=== PATIENT | female | born 1955 | race Caucasian/White ===

== ENCOUNTER 2020-08-30 13:04 | Outpatient (REF) | payer BC, SELFPAY ==
[2020-08-30 14:06] LABS: MANUAL DIFF FLAG NO
[2020-08-30 14:17] LABS: Basophils Percent Auto 0.1 % (0-2); Eosinophils Percent Auto 0.1 % (0-4); Hematocrit 45.7 % (37-47); Hemoglobin 14.8 g/dl (12.0-16.0); Imm Gran Abs Auto 0.08 X10*3/uL (0.00-0.03); Imm Gran Pct Auto 0.7 % (0.0-0.4); Lymphocytes Absolute Auto 1.5 X10*3/uL (1.2-4.9); Lymphocytes Percent Auto 13.2 % (20-40); Mean Corpuscular HGB Conc 32.4 g/dl (31.0-35.0); Mean Corpuscular Hemoglobin 32.4 pg (27.0-33.0); Mean Platelet Volume 10.7 fL (9.4-12.3); Monocytes Absolute Auto 0.7 X10*3/uL (0.1-1.2); Monocytes Percent Auto 5.7 % (2-11); Neutrophils Absolute Auto 9.1 X10*3/uL (2.0-8.3); Neutrophils Percent Auto 80.2 % (45-73); Platelet Count 358 X10*3/uL (160-400); Red Blood Count 4.57 X10*6/uL (4.20-5.50); Red Cell Distribution Width 13.2 % (11.0-16.0); White Blood Count 11.3 X10*3/uL (4.8-10.8)
[2020-08-30 14:28] LABS: Alanine Aminotransferase 19 U/L (0-31); Albumin Level 4.1 g/dL (3.5-5.0); Alkaline Phosphatase 132 U/L (39-117); Anion Gap 15 (12-20); Aspartate Amino Transferase 13 U/L (5-31); Bilirubin Total 0.5 mg/dL (0.0-1.0); Blood Urea Nitrogen 18 mg/dL (9-16); C Reactive Protein 0.04 mg/dL (< or = 0.50); Calcium 9.4 mg/dL (8.4-10.2); Carbon Dioxide 29 mmol/L (22-29); Chloride 101 mmol/L (96-108); Estimated Glomerular Filt Rate > 60; Glucose Random 96 mg/dL (60-115); Potassium 4.5 mmol/L (3.3-5.1); Sodium 140 mmol/L (135-145); Total Protein 6.9 g/dL (6.5-8.0)
[2020-08-30 14:35] LABS: Estimated Average Glucose 126 mg/dL
[2020-08-30 15:05] LABS: Erythrocyte Sedimentation Rate 2 MM/HR (0-20)
== END 2020-08-30 13:05 | disposition home or self-care (01) ==
LOC: HO.HMGCLDS 13:04
PROVIDERS: PCP Internal Medicine; Visit Provider Internal Medicine
DX: R53.83 Other fatigue (principal); E11.9 Type 2 diabetes mellitus without complications
CPT/HCPCS: 36415; 80053; 83036; 85025; 85652; 86140

== ENCOUNTER 2022-05-21 08:57 | Emergency (ER) | payer BC, SELFPAY ==
--- NOTE | ~2022-05-21 | XR_ITS ---
EXAMINATION: XR SHOULDER, RIGHT CLINICAL INFORMATION: Right shoulder pain status post fall. COMPARISON: None TECHNIQUE: Three views of the right shoulder. FINDINGS: Mild right acromioclavicular degenerative joint changes are seen. The right glenohumeral joint is unremarkable. There is no acute fracture or dislocation. The soft tissues are unremarkable. XR/XR shoulder RT min 2V IMPRESSION: Mild right acromioclavicular degenerative joint changes. No acute fracture.
--- NOTE | ~2022-05-21 | XR_ITS ---
EXAMINATION: XR HUMERUS, RIGHT CLINICAL INFORMATION: Right humerus pain status post fall. COMPARISON: None TECHNIQUE: AP and lateral views of the right humerus. FINDINGS: The bones and soft tissues are normal. No fracture. Imaged portions of the shoulder and elbow are unremarkable. XR/XR humerus RT IMPRESSION: Unremarkable right humerus.
[2022-05-21 09:10] VITALS: BP 154/93; PULSE 100; RESP 19; TEMP 36.6; O2SAT 97; BMI 31.4
--- OUTSIDE RECORDS SUMMARY | 2022-05-21 09:26 | XMS_ITS | Continuity of Care Document ---
:1955 Author Organization [facility] Address [address] [place] [address]- Care Team Providers Name Role Phone Not on Staff, PCP Primary Care Physician Unavailable [facility] - 04/26/[address] [address]- [facility] Encounter Diagnosis Chest pain (Final) - 04/22/19 Lactic acidosis (Final) - 04/22/19 Discharge Disposition: A-D/C Home Attending Physician: Winnie Ansari MD Admitting Physician: Winnie Ansari MD Referring Physician: Not on Staff, Referring MD Allergies, Adverse Reactions, Alerts Substance Reaction Severity Status NKA Active Immunizations Given and Recorded Vaccine Date Status Refusal Reason pneumococcal 13-valent vaccine 04/24/19 Given influenza virus vaccine, inactivated 04/24/19 Given Medications No Known Medications Results Radiology Reports Exam Date Time Procedure Performing Provider Status 04/23/19 12:07 AM Upper GI W/O KUB Najma Donovan; Modified Notes:(Upper GI W/O KUB) Reason For Exam: paraesopheal hernia with herniated stomach;Other:RESULT: Upper GI W/O KUB Upper GI W/O KUB Reason: paraesophageal hernia with herniated stomach; Clinical Question(s): Obstruction; gastric outlet obstruction COMPARISON: CT angiogram chest abdomen pelvis 04/22/2019 FLUOROSCOPY TIME: 0.6 minutes Dose Area Product (DAP): 5047.3 uGy*m2 TECHNIQUE: Water-soluble contrast upper GI examination was performed. FINDINGS: Traveling Repair Accountant view: No free air. Enteric tube in place with the tip curved cranially. Excreted contrast in the renal collecting systems bilaterally. Esophagus and stomach: Normal esophageal contour and mucosal appearance. Normal esophageal motility with prompt emptying into the stomach. A large paraesophageal hernia is visualized but no mesenteroaxial volvulus is identified. There may be a degree of organoaxial volvulus, but not definitively. There is mild hold up of contrast in the stomach though contrast is noted to pass into the duodenum and proximal loops of jejunum. No complete gastric outlet obstruction. IMPRESSION: 1. Large paraesophageal hernia without evidence gastric outlet obstruction as questioned. 2.No mesenteroaxial volvulus is identified. There may be a degree of organoaxial volvulus without obstruction. Findings discussed by Dr. Katz with Sandra Otto MD at 04/23/2019 12:14 AM. I have personally reviewed the images and I agree with this report. WSN: [id number] Dictated By: Mark Katz MD Dictated Date/Time: 04/23/19 0:17 am Reviewed By: Curtis Britton MD Signed By: Curtis Britton MD Signed Date/Time: 04/23/19 0:22 am Transcribed By: TRISTIN Transcribed Date/Time: 04/23/19 0:15 am Exam Date Time Procedure Performing Provider Status 04/22/19 9:55 PM Chest Portable [place] (Verified) Notes:(Chest Portable) Reason For Exam: Tube PlacementRESULT: Chest Portable Chest Portable AP upright at 2132 hours Reason: Tube Placement; Clinical Question(s): Other:; NGT placement COMPARISON: 04/22/2019 at 1420 hours FINDINGS: LINES AND TUBES: Enteric tube tip terminates near ESOPHAGEAL junction. LUNGS AND PLEURA: Mildly low lung volume. Prominent interstitial markings bilaterally with left basilar opacity, likely atelectasis as there is a large hiatal hernia present. No pleural effusion. No pneumothorax. HEART, MEDIASTINUM AND LUCA: Mild prominence of the cardiac silhouette, unchanged. Normal mediastinal and hilar contour. Large hiatal hernia. BONES AND SOFT TISSUES: No acute abnormality. IMPRESSION: 1. Enteric tube tip terminates near gastroesophageal junction. Recommend advancing 5-6 cm. 2. Central pulmonary congestion, new from prior exam. 3. Suspected left basilar atelectasis secondary to large hiatal hernia. WSN: [id number] Dictated By: Dwain Kelley DO Dictated Date/Time: 04/22/19 9:58 pm Reviewed By: Dwain Kelley DO Signed By: Dwain Kelley DO Signed Date/Time: 04/22/19 9:58 pm Transcribed By: TRISTIN Transcribed Date/Time: 04/22/19 9:57 pm Exam Date Time Procedure Performing Provider Status 04/22/19 2:39 PM Chest Portable García Nickoa; Auth (Verified) Notes:(Chest Portable) Reason For Exam: Chest Pain;Other:RESULT: Chest Portable Chest Portable Reason: Other:; Chest Pain; Clinical Question(s): CHF COMPARISON: None. FINDINGS: LINES AND TUBES: None. LUNGS AND PLEURA: Clear lungs. Normal pulmonary vascularity. No pleural effusion. No pneumothorax. HEART, MEDIASTINUM AND LUCA: Heart is normal in size. Normal mediastinal and hilar contour. BONES AND SOFT TISSUES: No acute abnormality. Gas seen projecting over the left heart, probably within a moderate to large hiatal hernia. IMPRESSION: 1. No acute abnormality. 2. Gas projecting over the left heart is probably within a moderate to large hiatal hernia. WSN: [id number] Dictated By: Lisandro Costa MD Dictated Date/Time: 04/22/19 2:48 pm Reviewed By: Lisandro Costa MD Signed By: Lisandro Costa MD Signed Date/Time: 04/22/19 2:48 pm Transcribed By: TRISTIN Transcribed Date/Time: 04/22/19 2:47 pm Vital Signs Most recent to oldest 1 2 3 [Reference Range]: Height 162 cm 162 cm 162 cm (04/26/19 7:58 AM) (04/26/19 4:12 AM) (04/25/19 11: 31 PM) Weight 90.1 kg 90.1 kg (04/25/19 3:17 PM) (04/23/19 1:19 AM) Oxygen Saturation [94-100 %] 97 % 97 % 97 % (04/26/19 7:58 AM) (04/26/19 4:12 AM) (04/25/19 11: 31 PM) Pulse Rate [55-90 bpm] 88 bpm 71 bpm 86 bpm (04/26/19 7:58 AM) (04/26/19 4:12 AM) (04/25/19 11: 31 PM) Body Mass Index [18.5-24.99] 34.33 34.33 *>HHI* *>HHI* (04/25/19 3:17 PM) (04/23/19 1:19 AM) Blood Pressure [90-138/55-84 129/78 mm Hg 126/67 mm Hg 127 /75 mm Hg mm Hg] (04/26/19 7:58 AM) (04/26/19 4:12 AM) (04/25/19 11: 31 PM) Respiratory Rate [16-30 16 br/min 18 br/min 18 br/mi n br/min] (04/26/19 7:58 AM) (04/26/19 4:12 AM) (04/25/19 11: 31 PM) Temperature [96.8-100.4 DegF] 97.6 DegF 98.1 DegF 98 .0 DegF (04/26/19 7:58 AM) (04/26/19 4:12 AM) (04/25/19 11: 31 PM) Liters per Minute 1 L/min 1 L/min 1 L/min (04/23/19 7:58 AM) (04/23/19 4:00 AM) (04/23/19 1:1 9 AM) Mode of Delivery (Oxygen) Room air Room air Room a ir (04/26/19 7:58 AM) (04/26/19 4:12 AM) (04/25/19 11: 31 PM) Blood pressure sites Arm, right Arm, right Arm, right (04/26/19 7:58 AM) (04/26/19 4:12 AM) (04/25/19 11: 31 PM) Temperature Route Oral Oral Oral (04/26/19 7:58 AM) (04/26/19 4:12 AM) (04/25/19 11: 31 PM) Dry Weight 90.1 kg (04/23/19 1:19 AM) Sensory deficits None (04/23/19 1:19 AM) Mobility assistance Independent (04/23/19 1: AM)
--- OUTSIDE RECORDS SUMMARY | 2022-05-21 09:26 | XMS_ITS | Continuity of Care Document ---
:1955 Author Organization [facility] Address [address] [place] [address]- Care Team Providers Name Role Phone Srinivasa GORDILLO, Alexandre Novak Primary Care Physician [facility]): [facility] - 06/17/[address] [place] [address]- [facility] Attending Physician: Rashid Lowe Admitting Physician: Rashid Loew Referring Physician: AdmtrRashid Allergies, Adverse Reactions, Alerts Substance Reaction Severity Status shellfish hives Active Immunizations Given and Recorded Vaccine Date Status Refusal Reason pneumococcal 13-valent vaccine 04/24/19 Given influenza virus vaccine, inactivated 04/24/19 Given Medications acetaminophen 325 mg oral tablet 325 mg, By Mouth, Every 4 hours, PRN, Refills 0, Maintenance, Pain , Mild, 05/23/19 8:17:00 EST Start Date: 05/23/19 Status: OrderedColace sodium 100 mg oral capsule 100 mg, 1, capsule, By Mouth, 2 times a day, PRN, with plenty of water, # 20 capsule, Refills 0, Tot. Refills 0, Maintenance, for constipation, 05/23/19 8:17:00 EST, Print Requisition Start Date: 05/23/19 Status: OrderedoxyCODONE 5 mg oral tablet 5 mg, 1, tablet, By Mouth, Every 6 hours, PRN, # 12 tablet, Refills 0, Tot. Refills 0, Maintenance, Pain , Moderate, 05/23/19 8:17:00 EST, Print Requisition, Partial fill upon patient request Start Date: 05/23/19 Status: Ordered Social History Social History Type Response Smoking Status Never (less than 100 in life time) entered on: 06/07/19 Sex
--- OUTSIDE RECORDS SUMMARY | 2022-05-21 09:26 | XMS_ITS ---
:1955 Author Support Name Relationship Address Phone Vani Au Unavailable [address] [facility] [phone] [place] [address] Edward, Mireya Unavailable [address] 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 ; [id number] Calcaneal spur o f left foot M77.32 ; Ca lcaneal spur of right fo ot M77.31 ; Pain of left h eel M79.672 and Pain of right heel M79.[address], [place] [address] Jun, [place] [address] [place] [address] IMMUNIZATIONS No Known Immunizations SOCIAL HISTORY Qualifiers Date Never Smoker REASON FOR REFERRAL FUNCTIONAL STATUS PLAN OF CARE Activity Details Pending Test X ray : Foot, left 3V Pending Test X ray : Foot, right 3V Future/Pending Procedure ,[id number] TENDON SHEAT H/LIGAMENT VITAL SIGNS Height 5 ft 4 in in 2022-02-24 Weight 180 lbs 2022-02-24 BMI 30.89 kg/m2 2022-02-24 MEDICATIONS Medication Instructions Dosage Frequency Start End Duration Statu s Date Date Amoxicillin 500 Orally every 8 1 capsule 8h 5 day(s ) Not-Takin MG hrs g PROCEDURES Procedure Date Ordered Result Body Site INJ BETAMETHSN ACTAT&SOD PHOSPH-3MG Feb 24, 2022 INJ TENDON SHEATH/LIGAMENT Feb 24, 2022 X-RAY EXAM OF LEFT FOOT 3V Feb 24, 2022 X-RAY EXAM OF RIGHT FOOT 3V Feb 24, 2022 RESULTS No Results REASON FOR VISIT Insurance Providers [facility] Member Patient Patient Patient Patient Patient Subscriber Subscriber Subscriber Group Insurance Plan Plan Plan Plan ID Relationship Address Phone Name Date of ID Name Date of No Type Insurance Insurance Insurance Coverage to Subscriber Address Phone Name Dates Medicare National [phone] Medicare self Vani [id number] Govt Sv[employer] [address] [place] [address] [employer] [phone] Blue[employer] self Vani [id number] Au 2 Medicare [place] Medicare Preferred [id number] Preferred MEDICAL (GENERAL) HISTORY Type Description Date Medical History Hiatal hernia Medical History Measles Medical History Mumps Medical History Chicken pox Surgical History No know Surgical history
--- OUTSIDE RECORDS SUMMARY | 2022-05-21 09:26 | XMS_ITS | Continuity of Care Document ---
:1955 Author Organization [facility] Address [address] [place] [address]- Care Team Providers Name Role Phone Srinivasa GORDILLO, Alexandre Novak Primary Care Physician [facility] - 05/24/[address] [address]- [facility] Discharge Disposition: A-D/C Home Attending Physician: Prieto Marinelli MD Admitting Physician: Prieto Marinelli MD Referring Physician: Prieto Marinelli MD Allergies, Adverse Reactions, Alerts Substance Reaction [...] patient request Start Date: 05/23/19 Status: Ordered Procedures Procedure Date Related Diagnosis Body Site Status Robotic repair of hiatal hernia with Completed Toupet fundoplication Vital Signs Most recent to oldest 1 2 3 [Reference Range]: Height 162.5 cm 162.5 cm 162.5 cm (05/22/19 4:57 PM) (05/22/19 4:55 PM) (05/22/19 6:3 7 AM) Weight 85.4 kg (05/22/19 4:55 PM) Oxygen Saturation [94-100 93 % 92 % 95 % %] *L* *L* (05/23/19 7:00 PM ) (05/24/19 7:00 AM) (05/24/19 3:00 AM) Pulse Rate [55-90 bpm] 91 bpm 91 bpm 92 bpm *H* *H* *H* (05/24/19 7:00 AM) (05/24/19 3:00 AM) (05/23/19 7:0 0 PM) Body Mass Index 32.34 [18.5-24.99] *>HHI* (05/22/19 4:55 PM) Blood Pressure 148/88 mm Hg 136/74 mm Hg 148/75 mm Hg [90-138/55-84 mm Hg] *H* (05/24/19 3:00 AM) *H* (05/24/19 7:00 AM) (05/23/19 7:00 PM) Respiratory Rate [16-30 18 br/min 18 br/min 17 br/mi n br/min] (05/24/19 7:00 AM) (05/24/19 3:00 AM) (05/24/19 2:2 1 AM) Temperature [96.8-100.4 97.8 DegF 97.8 DegF 98.5 Deg F DegF] (05/24/19 7:00 AM) (05/24/19 3:00 AM) (05/23/19 7:0 0 PM) Liters per Minute 4 L/min 4 L/min 4 L/min (05/22/19 3:00 PM) (05/22/19 1:45 PM) (05/22/19 1:0 0 PM) Mode of Delivery (Oxygen) Room air Room air Room a ir (05/24/19 7:00 AM) (05/24/19 3:00 AM) (05/23/19 7:0 0 PM) Blood pressure sites Arm, right Arm, right Arm, right (05/24/19 7:00 AM) (05/24/19 3:00 AM) (05/23/19 7:0 0 PM) Temperature Route Oral Oral Oral (05/24/19 7:00 AM) (05/24/19 3:00 AM) (05/23/19 7:0 0 PM) Dry Weight 85.4 kg 85.4 kg 84 kg (05/22/19 4:55 PM) (05/22/19 6:37 AM) (05/17/19 10: 41 AM) Dry Weight Obtained Via Standing scale Patient/family stated (05/22/19 6:37 AM) (05/17/19 10:41 AM) Sensory deficits None (05/22/19 4:55 PM) Mobility assistance Independent (05/22/19 4:55 PM)
--- OUTSIDE RECORDS SUMMARY | 2022-05-21 09:26 | XMS_ITS | Continuity of Care Document ---
:1955 Author Organization Address [address] [place] [address]- Care Team Providers Name Role Phone Not on Staff, PCP Primary Care Physician Unavailable [facility]): 05/[facility]/19 - 05/15/[address] [address] Attending Physician: Rashid Lowe Admitting Physician: Rashid Lowe Referring Physician: AdmtrRashid Allergies, Adverse Reactions, Alerts Substance Reaction Severity Status NKA Active Immunizations Given and Recorded Vaccine Date Status Refusal Reason pneumococcal 13-valent vaccine 04/24/19 Given influenza virus vaccine, inactivated 04/24/19 Given
--- NOTE | 2022-05-21 09:52 | ED.EXTPRO ---
HPI - Extremity Problem General Chief complaint: Extremity Injury, Upper <MARTHA Gallego - Last Filed: 05/21/22 10:53> Stated complaint: R arm inj 05/21/22 <MARTHA Gallego - Last Filed: 05/21/22 10:53> Time Seen by Provider: 05/21/22 09:15 <MARTHA Gallego - Last Filed: 05/21/22 10:53> Source: patient <MARTHA Gallego - Last Filed: 05/21/22 10:53> Mode of arrival: ambulatory <MARTHA Gallego - Last Filed: 05/21/22 10:53> History of Present Illness HPI Narrative: 66-year-old female with no significant past medical history presenting to the ED complaining of right upper arm/shoulder pain S/P being pulled over while walking her dog this morning. Admits fell on outstretched hand, denies head trauma or LOC. reports mild paresthesias initially, resolved at present. Denies neck/back pain, nausea/vomiting, weakness <MARTHA Gallego - Last Filed: 05/21/22 10:53> MD Complaint: extremity pain <MARTHA Gallego - Last Filed: 05/21/22 10:53> Onset (ago): minute(s) <MARTHA Gallego - Last Filed: 05/21/22 10:53> Related Data Home medications: Previous Rx's Medication Instructions Recorded acetaminophen 160 mg chewable 320 mg PO Q4-6H PRN fever or pain 05/21/22 tablet (Children's Tylenol) #20 tabs lidocaine 5 % topical patch 1 patch topical DAILY PRN pain #30 05/21/22 (Lidoderm) ea <MARTHA Gallego - Last Filed: 05/21/22 10:53> Allergies/Adverse reactions: Allergies Allergy/AdvReac Type Severity Reaction Status Date / Time codeine [CODEINE] Allergy Intermediate HEADACHES Unverified 12/21/19 14:49 cheese Allergy Unknown RUNNY NOSE Unverified 12/21/19 14:49 <MARTHA Gallego Last Filed: 05/21/22 10:53> Review of Systems Review of Systems: Constitutional: No Fever, No Chills ENT/Mouth: No Ear Pain, No Nasal Congestion, No Rhinorrhea, No Swallowing Difficulty Cardiovascular: No Chest Pain, No SOB Respiratory: No Cough, No Sputum Gastrointestinal: No Nausea, No Vomiting, No Diarrhea, No Constipation, No Abdominal pain Genitourinary: No Dysuria, No Urinary Frequency, No Hematuria, No Urinary Incontinence/retention Musculoskeletal: + joint pain, No Myalgias, No Joint Swelling Skin: No Skin Lesions, No rash Neuro: No Weakness, No Numbness, + Paresthesias, no head trauma, no LOC <MARTHA Gallego - Last Filed: 05/21/22 10:53> Yes all other systems are reviewed and are negative <MARTHA Gallego - Last Filed: 05/21/22 10:53> Constitutional: Constitutional: Reports as per HPI <MARTHA Gallego - Last Filed: 05/21/22 10:53> PMF Past Medical History Attestation statement: The following information was validated with the patient. <MARTHA Gallego - Last Filed: 05/21/22 10:53> Physical Exam Vital Signs: Vital Signs: Last Vital Signs Temp 98 F 05/21/22 09:10 Pulse 100 05/21/22 09:10 Resp 19 05/21/22 09:10 BP 154/93 H 05/21/22 09:10 Pulse Ox 97 05/21/22 09:10 O2 Del Method 05/21/22 09:10 BMI result Body Mass Index 31.4 <MARTHA Gallego - Last Filed: 05/21/22 10:53> Vital Signs: Last Vital Signs Temp 98 F 05/21/22 09:10 Pulse 100 05/21/22 09:10 Resp 05/21/22 09:10 BP 154/93 H 05/21/22 09:10 Pulse Ox 97 05/21/22 09:10 O2 Del Method 05/21/22 09:10 BMI result Body Mass Index 31.4 <Jorge Addison MD - Last Filed: 05/28/22 16:25> Const: General: cooperative, healthy appearing and no acute distress <MARTHA Gallego Last Filed: 05/21/22 10:53> Orientation/consciousness: patient oriented x3 <MARTHA Gallego - Last Filed: 05/21/22 10:53> Limitations: no limitations <Ban Ritchieestella [facility] Last Filed: 05/21/22 10:53> HEENT: Head: Yes normal to inspection and Yes atraumatic <Ban Ritchieestella [facility] Last Filed: 05/21/22 10:53> Ears: hearing grossly normal bilaterally <Ban Ritchieestella [facility] Last Filed: 05/21/22 10:53> General nose exam: Normal external nose present <Ban Ritchieestella [facility] Last Filed: 05/21/22 10:53> Face and sinus: Yes normal facial exam <Ban Ritchieestella [facility] Last Filed: 05/21/22 10:53> Eyes: General: appearance normal, both eyes and all related structures <Ban Ritchieestella [facility] Last Filed: 05/21/22 10:53> EOM: EOMs intact bilaterally <Ban Ritchieestella [facility] Last Filed: 05/21/22 10:53> Neck: Other: No midline cervical spinous tenderness <Ban Ritchieestella [facility] Last Filed: 05/21/22 10:53> Neck: Yes normal visual inspection and Yes no meningeal signs <Ban Ricthieestella [place] - Last Filed: 05/21/22 10:53> Chest: Chest palpation & inspection: normal inspection of the chest and no crepitus <Ban Ritchieestella [facility] Last Filed: 05/21/22 10:53> Resp: Effort & Inspection: normal respiratory effort and no respiratory distress <Ban Ritchieestella [facility] Last Filed: 05/21/22 10:53> Cardio: Rate: regular rate <Ban Ritchieestella [facility] Last Filed: 05/21/22 10:53> Peripheral pulses: radial pulses present and ulnar radial pulses present <Ban Long [place] - Last Filed: 05/21/22 10:53> GI: Inspection: Yes normal to inspection <Ban Long [facility] Last Filed: 05/21/22 10:53> Palpation (GI): Soft to palpation, nontender, no guarding and not rigid <Ban Long [place] - Last Filed: 05/21/22 10:53> : General: Yes no CVA tenderness <MARTHA Gallego - Last Filed: 05/21/22 10:53> Back/Spine/Pelvis: Other: No midline thoracic/lumbar spinous tenderness/step-off or deformity <MARTHA Gallego - Last Filed: 05/21/22 10:53> Back: no CVA tenderness <MARTHA Gallego - Last Filed: 05/21/22 10:53> Skin: Rashes: no rashes <MARTHA Gallego - Last Filed: 05/21/22 10:53> Wounds: no wounds <MARTHA Gallego - Last Filed: 05/21/22 10:53> Neuro: General: patient oriented x3, tone normal and no meningeal signs <MARTHA Gallego - Last Filed: 05/21/22 10:53> Gait exam (Neuro): Normal gait present <MARTHA Gallego - Last Filed: 05/21/22 10:53> Extrem: Other: Right shoulder without noted deformity/ecchymosis or erythema. + tenderness to palpation to humerus with decreased abduction and flexion secondary to pain. Elbow/forearm/hand/wrist nontender with ROM intact. NV intact <MARTHA Gallego - Last Filed: 05/21/22 10:53> General: Yes normal to inspection and Yes capillary refill normal <MARTHA Gallego - Last Filed: 05/21/22 10:53> Course Course Course Narrative: XR shoulder RT min 2V IMPRESSION: Mild right acromioclavicular degenerative joint changes. No acute fracture. ? XR humerus RT IMPRESSION: Unremarkable right humerus. Results discussed with patient including worrisome signs and symptoms and strict return precautions, and when to return to the emergency department. They verbalized understanding and feel safe for discharge at this time. <MARTHA Gallego Last Filed: 05/21/22 10:53> Medical Decision Making Medical Decision Making MDM Narrative: 66-year-old female with no significant past medical history presenting to the ED complaining of right upper arm/shoulder pain S/P being pulled over while walking her dog this morning. On exam vital signs stable, NAD, nontoxic appearing, physical exam as noted above. Concern for fracture vs MSK pain/strain vs rotator cuff injury. Lower suspicion for dislocation, no evidence of infection Plan: X-rays Please refer to course for remaining clinical decision making, interpretation of labs/imaging results, and discussions with consultants and/or family members. <MARTHA Gallego - Last Filed: 05/21/22 10:53> Differential Diagnosis Differential Diagnoses: The differential diagnosis associated with the presentation includes <MARTHA Gallego - Last Filed: 05/21/22 10:53> As above <MARTHA Gallego - Last Filed: 05/21/22 10:53> Radiology Impression Discussion of test interpretation with radiology: I have reviewed the radiologist's reading. <MARTHA Gallego - Last Filed: 05/21/22 10:53> Prescription Management I considered prescription management with: Pain Medication <MARTHA Gallego - Last Filed: 05/21/22 10:53> Attestation Attending Attestation: I reviewed SALES ACCOUNT LEADER/PA/Resident note, assessment and plan. I agree with the documentation, assessment and plan unless otherwise stated. <Jorge Addison MD - Last Filed: 05/28/22 16:25> Discharge Plan Discharge Clinical Impression: Right shoulder strain <MARTHA Gallego - Last Filed: 05/21/22 10:53> Patient Disposition: Home, Self-Care <MARTHA Gallego - Last Filed: 05/21/22 10:53> Instructions: Muscle Strain (ED) <MARTHA Gallego - Last Filed: 05/21/22 10:53> Additional Instructions: Your x-ray shows some AC joint arthritis, no fractures. You likely strained her muscle. You may have an underlying soft tissue injury, pain persists or worsens please have close follow-up with her doctor/orthopedics as needed Ice. Rest. Take Tylenol and Motrin as needed. Apply patches for pain <MARTHA Gallego - Last Filed: 05/21/22 10:53> Prescriptions: New acetaminophen [Children's Tylenol] 160 mg tablet,chewable 320 mg PO Q4-6H PRN (Reason: fever or pain) Qty: 20 0RF lidocaine [Lidoderm] 5 % adhesive patch,medicated 1 patch topical DAILY MDD remove after 12 hours PRN (Reason: pain) Qty: 30 0RF Rx Instructions: leave on most painful area for up to 12 hrs <MARTHA Gallego - Last Filed: 05/21/22 10:53> Referrals: [facility] [Provider Group] (As needed) Alexandre Bernabe MD [Primary Care Provider] - <MARTHA Gallego - Last Filed: 05/21/22 10:53> Discharge Date/Time: 05/21/22 11:09 <MARTHA Gallego - Last Filed: 05/21/22 10:53>
== END 2022-05-21 11:09 | disposition home or self-care (01) ==
PROVIDERS: Emergency Provider Emergency Medicine; PCP Internal Medicine
DX: S46.911A Strain of unspecified muscle, fascia and tendon at shoulder and upper arm level, right arm, initial encounter (principal); M79.601 Pain in right arm; X50.0XXA Overexertion from strenuous movement or load, initial encounter; Y93.K1 Activity, walking an animal; Y92.480 Sidewalk as the place of occurrence of the external cause; Y99.9 Unspecified external cause status; Z79.899 Other long term (current) drug therapy
CPT/HCPCS: 73030; 73060; 99281; 99283

== ENCOUNTER → 2022-06-09 08:18 | Outpatient (BNVA) | payer BC, SELFPAY | PROVIDERS: PCP Internal Medicine; Visit Provider Physician Assistant | DX: Z13.89 Encounter for screening for other disorder (principal) ==

== ENCOUNTER → 2022-07-07 12:56 | Outpatient (BNVA) | payer BC, SELFPAY | PROVIDERS: PCP Internal Medicine; Visit Provider Physician Assistant | DX: Z13.89 Encounter for screening for other disorder (principal) ==

== ENCOUNTER → 2022-08-18 08:59 | Outpatient (BNVA) | payer BC, SELFPAY | PROVIDERS: PCP Internal Medicine; Visit Provider Physician Assistant ==

== ENCOUNTER 2022-10-01 08:10 | Outpatient (REF) | payer MEDICARE, MEDICAID, SELFPAY ==
--- NOTE | 2022-10-01 08:12 | EMG_ITS ---
FINDINGS: Right median and ulnar motor and sensory studies were performed. Right radial sensory study was performed and paraspinal muscles were tested with a needle. IMPRESSION: Mild right ulnar sensory neuropathy. Otherwise, no significant abnormality was noted. MD CESIA Dasilva/WILFREDO / [id number]
== END 2022-10-01 08:11 | disposition home or self-care (01) ==
LOC: HO.NEURO 08:10
PROVIDERS: PCP Internal Medicine; Visit Provider Physician Assistant
DX: R20.0 Anesthesia of skin (principal); R20.2 Paresthesia of skin
CPT/HCPCS: 95886; 95909

== ENCOUNTER 2022-11-04 12:38 | Outpatient (AMB) | payer MEDICARE, MEDICAID, SELFPAY ==
--- NOTE | 2022-11-04 13:11 | MHC.OFFVIS ---
Intake Vital Signs 11/04/22 13:19 Height 5 ft 4 in Weight 183 lb BMI 31.4 Intake Visit Reasons: OV-nerve conduction study review Intake Note: Vani 67 yr old female presents today for her EMG review. States her numbness is mainly in between her index and middle finger. Allergies codeine [CODEINE] Allergy (Intermediate, Verified 11/04/22 13:22) HEADACHES cheese Allergy (Unknown, Verified 11/04/22 13:22) RUNNY NOSE HPI OV-nerve conduction study review HPI Details Vani is a 67 year old right hand dominant woman who presents for a NCS review of her right hand numbness. She complains primarily of numbness in the dorsal aspect of the 2nd web space extending proximally to the back of her hand. She says this began after a fall onto her hands ~6 months ago, back in May. She says this occurred while walking her dog, and she had a leash around her wrist. She denies any numbness in her thumb, ring, or small fingers. [facility] Social History Alcohol intake: never Patient Tobacco Use Status: Never used Tobacco Current occupational status: retired Current occupation: right hand dominant Review of Systems Const All systems reviewed & are unremarkable except as noted in HPI and below Physical Exam Vital Signs: BMI result Body Mass Index 31.4 Const General: cooperative, healthy appearing and no acute distress Orientation/consciousness: patient oriented x3 HEENT Head: Yes normocephalic and Yes atraumatic Eyes EOM: EOMs intact bilaterally Resp Effort & Inspection: normal respiratory effort and able to speak in complete sentences Cardio Jugular venous distension: no JVD Skin General skin exam: turgor normal Rashes: no rashes Neuro General: patient oriented x3 Extrem Other: Evaluation of Right Upper Extremity: The patient is alert, oriented, and in no acute distress Neuro: Median, Ulnar, Radial nerves motor and sensory intact and sensation is normal to the tips of all digits, except for a narrow band of ~1.5cm in diameter, extending from the radial styloid to the dorsal aspect of the 2nd MCP joint. No thenar or intrinsic wasting Good APB muscle belly firing and good finger cross Vascular: Cap refill brisk ROM: She can make a fist and extend all her digits Skin: No lacerations or abrasions. General: No Ecchymosis. No Erythema or evidence of infection. Nerve Conduction Study: IMPRESSION:? Mild right ulnar sensory neuropathy.? Otherwise, no significant abnormality was noted. Sofie Pemberton MD 10/01/2022 Psych Appearance: grossly normal Affect: normal affect Attitude: cooperative Assessment & Plan Assessment & Plan (1) Cubital tunnel syndrome on right: Code(s): G56.21 - Lesion of ulnar nerve, right upper limb (2) Numbness of right hand: Code(s): R20.0 - Anesthesia of skin Plan Assessment & Plan: 1. Right hand numbness In the dorsal aspect of the 2nd webspace Likely an injury to the branch of the right superficial radial nerve causing numbness extending from the radial styloid distally to the dorsal aspect of the 2nd webspace. Narrow, perhaps ~1.5cm in diameter. no numbness in the thumb From an injury in 05/2022 after walking her dog. her dog pulled on her wrist, and the leash was wrapped around her rest, causing her to fall I educated her about this condition No acute intervention warranted I explained it may take up to 9 months for her sensation to improve following her injury, and it may not fully return she can follow up prn 2. Right Cubital tunnel syndrome, mild Not symptomatic at this time If she develops any increased numbness in the ring and small fingers she can follow up Scribed for Marianne Fox MD by Brandon Whittaker, medical laboratory technician, on 11/04/22 at 2:10 PM, EST. Coding Level of Care Code New Pt Level 3 (55994) Diagnoses Cubital tunnel syndrome on right G56.21 Numbness of right hand R20.0
[2022-11-04 13:19] VITALS: BMI 31.4
== END 2022-11-04 14:12 | disposition home or self-care (01) ==
PROVIDERS: PCP Internal Medicine; Visit Provider Orthopaedic Surgery
DX: G56.21 Lesion of ulnar nerve, right upper limb (principal)
CPT/HCPCS: 99213

== ENCOUNTER → 2022-11-04 12:38 | Outpatient (BNVA) | payer MEDICARE, MEDICAID, SELFPAY | PROVIDERS: PCP Internal Medicine; Visit Provider Orthopaedic Surgery ==

== ENCOUNTER 2022-12-23 08:54 | Emergency (ER) | payer MEDICARE, MEDICAID, SELFPAY ==
[2022-12-23 09:25] VITALS: BP 154/71; PULSE 83; RESP 18; TEMP 36.6; O2SAT 98; BMI 31.4
--- NOTE | 2022-12-23 10:30 | ED.GENADULT ---
HPI - General Adult General Chief complaint: General Medical Stated complaint: l sided gland swelling into ear Time Seen by Provider: 12/23/22 10:11 Source: patient Mode of arrival: ambulatory Limitations: no limitations History of Present Illness HPI narrative: 67-year-old female presents to the ER for evaluation of a swollen and painful gland at the angle of her jaw on the left side that started last night. She states the pain and pressure that started to radiate upward towards the ear. She denies any neck pain or dental pain. No difficulty opening or closing her mouth. No fever or chills. No redness over the area. MD complaint: Left facial pain Onset (ago): day(s) (1) Location: face Radiation: proximal Severity: moderate Severity scale (1-10): 7 Quality: sharp Pain Consistency: intermittent Relieving factors: rest Exacerbating factors: movement Associated symptoms: denies other symptoms Treatments prior to arrival: none Related Data Home Medications Medication Instructions Recorded Confirmed ibuprofen 200 mg tablet 200 mg PO Q6H PRN 06/09/22 Allergies Allergy/AdvReac Type Severity Reaction Status Date / Time codeine [CODEINE] Allergy Intermediate HEADACHES Verified 12/23/22 09:25 cheese Allergy Unknown RUNNY NOSE Verified 12/23/22 09:25 Review of Systems Review of Systems: Yes all other systems are reviewed and are negative [facility] Social History Social History Alcohol intake: never Patient Tobacco Use Status: Never used Tobacco Advance Directives: No Advance Directives Information Provided: Yes Current occupational status: retired Current occupation: right hand dominant Physical Exam ED Vital Signs: Vital Signs - 24 hr 12/23/22 09:25 Temperature 98 F Pulse Rate 83 Respiratory Rate 18 Blood Pressure 154/71 H Pulse Oximetry 98 Oxygen Delivery Method Room Air BMI result Body Mass Index 31.4 Appearance: Alert. Oriented X3. No acute distress. HEENT: normocephalic, atraumatic. there is mild swelling of the left parotid gland w/ associated tenderness. no overlying erythema. normal TMs bilaterally. no mastoid tenderness. no dental tenderness of gingival swelling. no visible salivary stone CVS: Normal heart rate and rhythm. Pulses normal. Respiratory: No respiratory distress. Skin: Skin warm and dry. Normal skin color. Normal skin turgor. No rashes. Extremities: normal inspection Neuro: Oriented X 3. Grossly normal, nonfocal Medical Decision Making Medical Decision Making MDM Narrative: female presents to the ER for evaluation of left-sided facial swelling and pain that started last night. On exam and clinical presentation are consistent with acute left-sided parotiditis. no evidence of acute infection. No mastoid tenderness. No dental infection noted. No need for antibiotics at this time. We discussed diagnosis and treatment along with return precautions. She is stable for discharge home. All questions were answered. Differential Diagnosis Differential Diagnoses: The differential diagnosis associated with the presentation includes parotiditis, AOM, otitis external, lymphadenopathy, mastoiditis External Record Review External record reviewed: Outpatient record and Prior outpatient labs Prescription Management I considered prescription management with: Pain Medication Critical Care Time Critical Care Time Critical Care Time: No Discharge Plan Discharge Clinical Impression: Parotiditis Patient Disposition: Home, Self-Care Instructions: Sialoadenitis (ED) Additional Instructions: take ibuprofen/motrin/Aleve/Advil for pain and swelling suck on sour candies or lemon to help increase saliva production gently massage the area and use warm compresses If you develop new or worsening symptoms call 911 or come back to the ER for further evaluation. Prescriptions: No Action ibuprofen 200 mg tablet 200 mg PO Q6H PRN Interventions: ED Discharge Assessment Last Done: 12/23/22 10:41 Discharge Date/Time: 12/23/22 10:43
== END 2022-12-23 10:43 | disposition home or self-care (01) ==
PROVIDERS: Emergency Provider Emergency Medicine; PCP Internal Medicine
DX: K11.21 Acute sialoadenitis (principal)
CPT/HCPCS: 99282; 99283

== ENCOUNTER 2024-08-31 08:42 | Emergency (ER) | payer MEDICARE, MEDICAID, SELFPAY ==
--- NOTE | ~2024-08-31 | XR_ITS ---
EXAMINATION: XR KNEE 3 VIEWS RIGHT HISTORY: knee pain COMPARISON: There are no prior studies available for comparison. FINDINGS: Four views of the right knee are submitted. Osseous mineralization is normal. There is no fracture or dislocation. The joint spaces are preserved. The soft tissues are unremarkable. There is no joint effusion. XR/XR knee RT 3V IMPRESSION: Unremarkable examination of the right knee. Electronically signed by: Pritesh Hollis MD 08/31/2024 10:00 AM EDT
[2024-08-31 09:02] VITALS: BP 158/92; PULSE 70; RESP 16; TEMP 36.7; O2SAT 97; BMI 34.0
[2024-08-31 09:05] VITALS: BP 158/92; PULSE 70; RESP 16; TEMP 36.7; O2SAT 97
--- NOTE | 2024-08-31 09:08 | PC.NURSE ---
Pt comes to ED today from home for complaint of R knee pain/swelling. Pt reports striking knee on furniture back in July. R knee was fine until recently when she began to experience pain and swelling that worsens with walking. She sates she took both Adult and Pediatric Ibuprofen in which did help with her pain. Pt observed ambulating with a safe and steady gait. A&Ox3 VSS. Awaiting ED provider.
--- NOTE | 2024-08-31 09:45 | ED_ITS ---
HPI - Extremity Injury (Lower) General Chief Complaint: Extremity Injury, Lower Stated Complaint: r knee pain Time Seen by Provider: 08/31/24 08:57 History of Present Illness HPI Narrative: Patient is a 69-year-old female presents today with having right knee pain. Patient claims she hit her right knee with a bedpost about a month ago. Has been having increasing pain. The pain is improved with ibuprofen. Patient denies any other trauma. Denies any swelling to the calf. No travel history no history of blood clots. Not on blood thinners. No head injury. No nausea no vomiting. Patient is from home. Related Data Home Medications ?Medication ?Instructions ?Recorded ?Confirmed ibuprofen 200 mg tablet 200 mg PO Q6H PRN 06/09/22 Allergies Allergy/AdvReac Type Severity Reaction Status Date / Time codeine [CODEINE] Allergy Intermediate HEADACHES Verified 08/31/24 09:04 cheese Allergy Unknown RUNNY NOSE Verified 08/31/24 09:04 Review of Systems Review of Systems: Positive pain to the right knee Yes all other systems are reviewed and are negative [facility] Past Medical History Attestation statement: The following information was validated with the patient. Social History Social History Alcohol intake: never Patient Tobacco Use Status: Never used Tobacco Smoked in Last 30 Days: No Use of substances other than those prescribed or required for medical reasons: No Advance Directives: No Advance Directives Information Provided: Yes Do you have a plan to hurt others: No Plan Current occupational status: retired Current occupation: right hand dominant Physical Exam Vital Signs: Vital Signs: Last Vital Signs Temp 98.1 F 08/31/24 09:05 Pulse 70 08/31/24 09:05 Resp 16 08/31/24 09:05 BP 158/92 H 08/31/24 09:05 Pulse Ox 97 08/31/24 09:05 O2 Del Method Room Air 08/31/24 09:05 BMI result Body Mass Index 34.0 Appearance: Alert. Oriented X3. No acute distress. Eyes: Pupils equal, round and reactive to light. ENT: Pharynx normal. Neck: Normal inspection. Neck supple. No lymph nodes noted. No crepitus CVS: Normal heart rate and rhythm. Pulses normal. Normal S1 and S2 Respiratory: No respiratory distress. Breath sounds normal. No Wheezing. No rales Abdomen: Soft and nontender. No rigidity. No distention. good BS x4 Skin: Skin warm and dry. Normal skin color. Normal skin turgor. Extremities: No lower extremity edema. Neurovascular intact to all extremities. Positive pain to the right knee. There is no pain on palpation of the kneecap. There is no pain on palpation of medial or lateral collateral ligament. There is no there is no effusion noted. Distal pulses intact calf size equal bilaterally at approximately 10 cm below the tibial tuberosity. Patient had good movement of the ankle the foot bilaterally. Skin is intact. Neuro: Oriented X 3. No motor deficit. No sensory deficit. Moving all extermities. No slurred speech Medical Decision Making Medical Decision Making MDM Narrative: Patient has pain to the right knee. It has been ongoing for about a month. On exam there is no signs of joint effusion. Patient's x-ray by my interpretation showed no acute evidence of fracture. Patient has an appointment to follow-up with orthopedics on an outpatient basis. She is well-appearing no distress. Ambulates well. Will discharge home. No signs of DVT patient's calf Differential Diagnosis Differential Diagnoses: The differential diagnosis associated with the presentation includes Fracture, internal derangement of the knee. Admission/Observation Consideration of admission/observation: Escalation of care including admission/observation considered Lab Data MDM Lab Attestation statement: I reviewed the patient's lab results. Radiology Impression Discussion of test interpretation with radiology: I have reviewed the radiologist's reading. Social Determinants Patient?s care significantly limited by Social Determinants of Health including: Problems related to primary support group Discharge Plan Discharge Clinical Impression: Acute knee pain Patient Disposition: Home, Self-Care Instructions: Knee Pain (ED) Prescriptions: No Action ibuprofen 200 mg tablet 200 mg PO Q6H PRN Referrals: Jason Tejada MD [Physician] - 09/07/24 Print Language: Albanian
--- OUTSIDE RECORDS SUMMARY | 2024-08-31 09:50 | XMS_ITS | Clinical Summary ---
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 Role Phone Unavailable Primary Care Provider Unavailabl e Social History Tobacco Use Types Packs/Day Years Used Date Smoking Tobacco: Never Assessed Comments Unknown Sex and Gender Information Value Date Recorded Sex Assigned at Not on file Legal Sex Female 6:56 PM EST Gender Identity Not on file Sexual Orientation Not on file Plan of Treatment Health Maintenance Due Date Last Done Comments Breast Cancer Screening 1955 DTaP,Tdap,and Td Vaccines (1 - Tdap) 1972 Pneumococcal Vaccine: 50+ Ye ars (1 of 1 - PCV) 06/14/2003 Zoster Vaccines (1 of 2) 06/14/2003 COVID-19 Vaccine ( - 2023-2 5 season) 2023 Influenza Vaccine (Season Ended) 2024 RSV Immunization Adult Patie nts (1 - 1-dose 75+ series) 2028 HIB Vaccines Aged Out No longer eligi ble based on patient's age to complete this topic HPV Vaccines Aged Out No longer eligi ble based on patient's age to complete this topic Hepatitis A Vaccines Aged Out No long er eligible based on patient's age to complete this topic Hepatitis B Vaccines Aged Out No long er eligible based on patient's age to complete this topic IPV Vaccines Aged Out No longer eligi ble based on patient's age to complete this topic MMR Vaccines Aged Out No longer eligi ble based on patient's age to complete this topic Meningococcal ACWY Vaccine Aged Out N o longer eligible based on patient's age to complete this topic Meningococcal B Vaccine Aged Out No l onger eligible based on patient's age to complete this topic RSV Immunization Patients Un tl 20 months Aged Out No longer eligible b ased on patient's age to complete this topic Varicella Vaccines Aged Out No longer eligible based on patient's age to complete this topic
[2024-08-31 11:48] VITALS: BP 158/92; PULSE 70; RESP 16; TEMP 36.7; O2SAT 97
== END 2024-08-31 11:48 | disposition home or self-care (01) ==
PROVIDERS: Emergency Provider Emergency Medicine Emergency Medical Services; PCP Nurse Practitioner Family
DX: M25.561 Pain in right knee (principal); Z79.899 Other long term (current) drug therapy
CPT/HCPCS: 73562; 99283; 99284

== ENCOUNTER → 2024-08-31 09:44 | Outpatient (BNV) | payer MEDICARE, MEDICAID, SELFPAY | PROVIDERS: Emergency Provider Emergency Medicine Emergency Medical Services; PCP Nurse Practitioner Family; Visit Provider Radiology Diagnostic Radiology | DX: M25.561 Pain in right knee (principal) | CPT/HCPCS: 73562 ==

== ENCOUNTER 2024-09-04 10:22 | Outpatient (REF) | payer MEDICARE, MEDICAID, SELFPAY ==
--- NOTE | ~2024-09-04 | XR_ITS ---
EXAMINATION: XR KNEE, RIGHT CLINICAL INFORMATION: M25.569 - Pain in unspecified knee COMPARISON: 08/31/2024. TECHNIQUE: AP view bilateral knees standing, and patellofemoral views right knee. FINDINGS: LEFT Knee: No fracture or dislocation. Preserved joint spaces. Normal alignment. Normal soft tissues. RIGHT Knee: No fracture, dislocation, or suspicious bone lesion. Joint spaces are preserved. Normal knee and patellar alignment. Normal soft tissues. XR/XR knee RT 2V IMPRESSION: 1. Normal bilateral knees. Electronically signed by: Sabino Gonzalez MD 09/04/2024 03:46 PM EDT
--- OUTSIDE RECORDS SUMMARY | 2024-09-04 11:23 | XMS_ITS | Clinical Summary ---
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
== END 2024-09-04 10:23 | disposition home or self-care (01) ==
LOC: HO.HOSX 10:22
PROVIDERS: Visit Provider Physician Assistant
DX: M25.561 Pain in right knee (principal); S80.01XA Contusion of right knee, initial encounter
CPT/HCPCS: 73560; 99212

== ENCOUNTER 2024-09-04 10:55 | Outpatient (AMB) | payer MEDICARE, MEDICAID, SELFPAY ==
--- NOTE | 2024-09-04 11:04 | A.OFFVIS_ITS ---
Vital Signs 09/04/24 11:10 Height 5 ft 4 in Weight 198 lb BMI 34.0 Intake Visit Reasons: New prob-Rt knee pain Intake Note: Vani is hit her right knee with a bedpost about a 2 months ago. She states that her knee is a 7/10 on the pain scale. Patient notices that her pain is on the medial aspect of the knee. She was told at the ED that she might have a torn meniscus. Patient's pain is worse when she is going up the stairs and walking on a incline. She has has been icing, taking tylenol and resting with elevation with relief. IMPRESSION: Unremarkable examination of the right knee. Allergies codeine [CODEINE] Allergy (Intermediate, Verified 09/04/24 11:08) HEADACHES cheese Allergy (Unknown, Verified 09/04/24 11:08) RUNNY NOSE HPI HPI New prob-Rt knee pain: Details: Ms. Au is a 69-year-old female who presents to the office today for evaluation of right knee pain. She reports that the pain began about 2 months ago when she was walking and hit the medial aspect of the knee hard against a bedpost. Ever since then she has noticed an increase in pain along the medial aspect of the knee. Her pain is worse with weight-bearing activities. She has tried Tylenol and ibuprofen which has helped some with pain. [facility] Social History Alcohol intake: never Patient Tobacco Use Status: Never used Tobacco Current occupational status: retired Current occupation: right hand dominant Review of Systems Const All systems reviewed & are unremarkable except as noted in HPI and below Physical Exam Vital Signs: BMI result Body Mass Index 34.0 Const General: cooperative, healthy appearing and no acute distress Resp Effort & Inspection: normal respiratory effort and able to speak in complete sentences Extrem Other: Right knee normal to inspection no ecchymosis, erythema or joint effusion. Tenderness to palpation along the medial joint line. No tenderness to lateral joint line. Crepitus felt with range of motion. Negative Steinmann. NVI. Assessment & Plan Assessment & Plan (1) Contusion of right knee: Code(s): S80.01XA - Contusion of right knee, initial encounter Category: Medical Plan Ms. Au is a 69-year-old female who presents to the office today for evaluation of right knee pain. She reports that the pain began about 2 months ago when she was walking and hit the medial aspect of the knee hard against a bedpost. Ever since then she has noticed an increase in pain along the medial aspect of the knee. Her pain is worse with weight-bearing activities. She has tried Tylenol and ibuprofen which has helped some with pain. All the office today, the patient states that the prior provider had recommended a possible meniscal tear but on exam today she does not elicit any pain with Hardy's and is mainly experienced an increase in pain with palpation. She ambulates well but I do believe she may benefit from the use of a knee brace. I provided the patient with a wrap pop knee brace off the shelf she may wear during activities as needed. We discussed the role of physical therapy however the patient is experiencing full range of motion at this time and therefore this was deferred. Should she reach a plateau or would like to attend physical therapy she will contact the office and I am happy to place a formal order for her. She will follow up PRN, sooner if needed. x-rays of the right knee that were obtained on 08/31/2024 as well as additional views in the office today are negative for any acute fracture or dislocation. Orders: Orders XR knee RT 2V Today M25.569 - Pain in unspecified knee Coding Level of Care Code New Pt Level 3 (64229) Diagnoses Contusion of right knee S80.01XA
[2024-09-04 11:10] VITALS: BMI 34.0
== END 2024-09-04 11:46 | disposition home or self-care (01) ==
LOC: HO.HOS 10:58
PROVIDERS: PCP Nurse Practitioner Family; Visit Provider Physician Assistant
DX: S80.01XA Contusion of right knee, initial encounter (principal)
CPT/HCPCS: 99213

== ENCOUNTER → 2024-09-04 11:00 | Outpatient (BNV) | payer MEDICARE, MEDICAID, SELFPAY | PROVIDERS: Visit Provider Radiology Diagnostic Radiology | DX: M25.561 Pain in right knee (principal) | CPT/HCPCS: 73560 ==